=== PATIENT | female | born 1950 ===

== ENCOUNTER 2020-01-17 05:21 | Inpatient (IN) ==
[2020-01-17] MEDS ORDERED: NS 0.9% 1000 ml BAG 1,000 ML IV ONE ×2 (06:07→07:57)
[2020-01-17] MEDS ORDERED: Ondansetron 4 mg VIAL 2 MG/ML 2 ml VIAL IV ONE (07:21)
[2020-01-17 07:45] LABS: Hematocrit 40 % (35-47); Hemoglobin 13.6 g/dL (12.0-16.0); Mean Corpuscular HGB Conc 34 g/dL (31-36); Mean Corpuscular Hemoglobin 31 pg (27-31); Mean Corpuscular Volume 93 fL (80-97); Mean Platelet Volume 8.3 fL (7.4-10.4); Platelet Count 195 10^3/uL (150-450); Red Blood Count 4.33 10^6 /uL (3.70-4.87); Red Cell Distribution Width 19 % (10-15); White Blood Count 0.9 10^3/uL (3.5-10.8)
[2020-01-17 07:54] LABS: Albumin/Globulin Ratio 1.5 (1-3); BUN/Creatinine Ratio 28.6 (8-20); C Reactive Protein 18.82 mg/L (<8.01); Calcium 8.9 mg/dL (8.6-10.3); EGFR African American 112.7 (>60); EGFR Non-African American 93.2 (>60); Globulin 2.7 g/dL (2-4); Potassium 3.7 mmol/L (3.5-5.0); Total Bilirubin 1.1 mg/dL (0.2-1.0); Total Protein 6.7 g/dL (6.4-8.9)
[2020-01-17 08:58] LABS: ABS Lymphocytes 0.3 10^3/ul (1.0-4.8); ABS Neutrophils 0.6 10^3/ul (1.5-7.7); Eosinophil % 0.7 %; Lymphocyte % 32.5 %; Nucleated Red Blood Cells % 0.1
[2020-01-17] MEDS ORDERED: Iohexol 300 (CONTRAST) 10 ML SDV IV ONE (09:28)
[2020-01-17] MEDS ORDERED: Piperacillin/Tazobac ADVAN 3.375 GM in NS 0.9% 100 ml BAG 100 ML IV ONE (10:23)
[2020-01-17] MEDS ORDERED: NS 0.9% 1000 ml BAG 1,000 ML IV SCH (12:00)
[2020-01-17] MEDS ORDERED: Enoxaparin 40 MG/0.4 ML SYR SUBCUT SCH (12:00)
[2020-01-17] MEDS ORDERED: Ondansetron 4 mg VIAL 2 MG/ML 2 ml VIAL IV PRN (12:00)
[2020-01-17] MEDS ORDERED: Prochlorperazine 5 mg/ml 2 ml VIAL (10 mg) IV PRN (13:04)
[2020-01-17] MEDS ORDERED: Morphine 2 MG/ML SYRINGE IV PRN (13:05)
[2020-01-17] MEDS: Carbidopa/Levodop 25/100 MG TAB PO SCH ×2 (14:11→20:48)
[2020-01-17] MEDS ORDERED: Piperacillin/Tazobac ADVAN 4.5 GM in NS 0.9% 100 ml BAG 100 ML IV SCH (14:30)
[2020-01-17] MEDS: Piperacillin/Tazobac ADVAN 4.5 GM in NS 0.9% 100 ml BAG 100 ML IV SCH ×2 (15:47→21:35)
[2020-01-18] MEDS: Piperacillin/Tazobac ADVAN 4.5 GM in NS 0.9% 100 ml BAG 100 ML IV SCH ×4 (03:11→21:20)
[2020-01-18] MEDS: Carbidopa/Levodop 25/100 MG TAB PO SCH ×3 (07:48→19:39)
[2020-01-18 08:08] LABS: Hematocrit 30 % (35-47); Hemoglobin 10.6 g/dL (12.0-16.0); Mean Corpuscular HGB Conc 35 g/dL (31-36); Mean Corpuscular Hemoglobin 33 pg (27-31); Mean Corpuscular Volume 93 fL (80-97); Mean Platelet Volume 8.5 fL (7.4-10.4); Platelet Count 131 10^3/uL (150-450); Red Blood Count 3.26 10^6 /uL (3.70-4.87); Red Cell Distribution Width 19 % (10-15); White Blood Count 3.3 10^3/uL (3.5-10.8)
[2020-01-18 08:20] LABS: Albumin/Globulin Ratio 1.3 (1-3); BUN/Creatinine Ratio 23.7 (8-20); Calcium 7.8 mg/dL (8.6-10.3); EGFR African American 121.6 (>60); EGFR Non-African American 100.5 (>60); Globulin 2.4 g/dL (2-4); Total Bilirubin 1.1 mg/dL (0.2-1.0); Total Protein 5.4 g/dL (6.4-8.9)
[2020-01-18 08:52] LABS: Potassium 3.5 mmol/L (3.5-5.0)
[2020-01-18 09:13] LABS: ABS Lymphocytes 0.2 10^3/ul (1.0-4.8); ABS Monocytes 0.1 10^3/ul (0-0.8); ABS Neutrophils 2.9 10^3/ul (1.5-7.7); Eosinophil % 0.1 %; Lymphocyte % 6.6 %; Nucleated Red Blood Cells % 0.1
[2020-01-18] MEDS: NS 0.9% 1000 ml BAG 1,000 ML IV SCH (21:20)
[2020-01-19] MEDS: Piperacillin/Tazobac ADVAN 4.5 GM in NS 0.9% 100 ml BAG 100 ML IV SCH ×4 (03:32→22:36)
[2020-01-19 06:12] LABS: Hematocrit 30 % (35-47); Hemoglobin 10.1 g/dL (12.0-16.0); Mean Corpuscular HGB Conc 34 g/dL (31-36); Mean Corpuscular Hemoglobin 31 pg (27-31); Mean Corpuscular Volume 92 fL (80-97); Platelet Count 134 10^3/uL (150-450); Red Blood Count 3.24 10^6 /uL (3.70-4.87); Red Cell Distribution Width 19 % (10-15); White Blood Count 2.5 10^3/uL (3.5-10.8)
[2020-01-19 06:28] LABS: Albumin 3.1 g/dL (3.2-5.2); Albumin/Globulin Ratio 1.2 (1-3); BUN/Creatinine Ratio 20.4 (8-20); Calcium 8.6 mg/dL (8.6-10.3); EGFR African American 134.7 (>60); EGFR Non-African American 111.3 (>60); Globulin 2.6 g/dL (2-4); Total Bilirubin 0.7 mg/dL (0.2-1.0); Total Protein 5.7 g/dL (6.4-8.9)
[2020-01-19 07:54] LABS: ABS Lymphocytes 0.2 10^3/ul (1.0-4.8); ABS Monocytes 0.2 10^3/ul (0-0.8); ABS Neutrophils 2.2 10^3/ul (1.5-7.7); Eosinophil % 0.2 %; Lymphocyte % 7.4 %; Nucleated Red Blood Cells % 0.1
[2020-01-19] MEDS: Carbidopa/Levodop 25/100 MG TAB PO SCH ×3 (08:28→20:57)
[2020-01-19 09:50] LABS: Magnesium 1.5 mg/dL (1.9-2.7)
[2020-01-19] MEDS ORDERED: Magnesium Sulf 4 GM/100 ML IV 4,000 MG/100 ML BAG IVPB ONE (10:29)
[2020-01-19] MEDS: KCL 10 MEQ/50 ML IVPREMIX 10 MEQ/50 ML BAG IV SCH ×3 (13:19→16:00)
[2020-01-19 14:16] LABS: Urine Appearance Cloudy; Urine Bilirubin Negative (Negative); Urine Blood 1+ (Negative); Urine Color Yellow; Urine Glucose 1+(50 mg/dL) (Negative); Urine Ketones Trace (Negative); Urine Nitrite Negative (Negative); Urine Protein 1+(30 mg/dL) (Negative); Urine Specific Gravity 1.028 (1.010-1.030); Urine Urobilinogen Negative (Negative)
[2020-01-19 14:21] LABS: Urine Bacteria Absent (Absent); Urine Red Blood Cell 3+(>10/hpf) (Absent); Urine Squamous Epithelial Cell Present (Absent); Urine White Blood Cell 2+(11-20/hpf) (Absent)
[2020-01-19] MEDS: NS 0.9% 1000 ml BAG 1,000 ML IV SCH (18:18)
[2020-01-20] MEDS: Piperacillin/Tazobac ADVAN 4.5 GM in NS 0.9% 100 ml BAG 100 ML IV SCH ×4 (03:38→20:45)
[2020-01-20 06:48] LABS: Albumin 3.1 g/dL (3.2-5.2); Calcium 8.5 mg/dL (8.6-10.3); EGFR African American 147.2 (>60); EGFR Non-African American 121.6 (>60); Magnesium 1.9 mg/dL (1.9-2.7); Potassium 2.9 mmol/L (3.5-5.0); Total Bilirubin 0.8 mg/dL (0.2-1.0); Total Protein 6.1 g/dL (6.4-8.9)
[2020-01-20] MEDS: Carbidopa/Levodop 25/100 MG TAB PO SCH ×3 (09:39→20:46)
[2020-01-20] MEDS: KCL 20 MEQ/100 ML IVPREMIX 20 MEQ/100 ML BAG IV SCH ×2 (09:41→15:13)
[2020-01-20] MEDS: Albuterol HFA INHALER 8 gm MDI INH PRN (13:32)
[2020-01-20 16:22] LABS: Hematocrit 30 % (35-47); Hemoglobin 10.5 g/dL (12.0-16.0); Mean Corpuscular HGB Conc 35 g/dL (31-36); Mean Corpuscular Hemoglobin 32 pg (27-31); Mean Corpuscular Volume 91 fL (80-97); Mean Platelet Volume 7.6 fL (7.4-10.4); Platelet Count 157 10^3/uL (150-450); Red Blood Count 3.28 10^6 /uL (3.70-4.87); Red Cell Distribution Width 19 % (10-15); White Blood Count 1.9 10^3/uL (3.5-10.8)
[2020-01-20 16:51] LABS: ABS Lymphocytes 0.2 10^3/ul (1.0-4.8); ABS Monocytes 0.7 10^3/ul (0-0.8); ABS Neutrophils 0.9 10^3/ul (1.5-7.7); Eosinophil % 0.1 %; Lymphocyte % 12.4 %; Nucleated Red Blood Cells % 0.1
[2020-01-20] MEDS: NS 0.9% 1000 ml BAG 1,000 ML IV SCH (17:25)
[2020-01-21] MEDS: Piperacillin/Tazobac ADVAN 4.5 GM in NS 0.9% 100 ml BAG 100 ML IV SCH ×4 (02:18→21:36)
[2020-01-21] MEDS: Morphine 2 MG/ML SYRINGE IV PRN ×2 (05:27→11:49)
[2020-01-21] MEDS: Carbidopa/Levodop 25/100 MG TAB PO SCH ×3 (08:05→21:36)
[2020-01-21 08:50] LABS: Hematocrit 30 % (35-47); Hemoglobin 10.2 g/dL (12.0-16.0); Mean Corpuscular HGB Conc 34 g/dL (31-36); Mean Corpuscular Hemoglobin 31 pg (27-31); Mean Corpuscular Volume 92 fL (80-97); Mean Platelet Volume 7.5 fL (7.4-10.4); Platelet Count 159 10^3/uL (150-450); Red Cell Distribution Width 19 % (10-15)
[2020-01-21 09:05] LABS: Albumin 3.2 g/dL (3.2-5.2); EGFR African American 170.6 (>60); Globulin 3.1 g/dL (2-4); Potassium 3.2 mmol/L (3.5-5.0); Total Protein 6.3 g/dL (6.4-8.9)
[2020-01-21 09:36] LABS: ABS Lymphocytes 0.3 10^3/ul (1.0-4.8); ABS Monocytes 0.9 10^3/ul (0-0.8); ABS Neutrophils 0.8 10^3/ul (1.5-7.7); Eosinophil % 0.2 %; Lymphocyte % 16.8 %; Nucleated Red Blood Cells % 0.1
[2020-01-21] MEDS: KCL 20 MEQ/100 ML IVPREMIX 20 MEQ/100 ML BAG IV SCH ×2 (10:59→15:37)
[2020-01-21] MEDS: TPN 24 HR with Dextrose 50% Water 500 ML, Amino Acid Infusion 10% 850 ML, Sterile Water... CENTR SCH (17:21)
[2020-01-21] MEDS: Albuterol HFA INHALER 8 gm MDI INH PRN (19:39)
[2020-01-22] MEDS: Piperacillin/Tazobac ADVAN 4.5 GM in NS 0.9% 100 ml BAG 100 ML IV SCH ×4 (02:38→20:51)
[2020-01-22 06:00] LABS: Hematocrit 27 % (35-47); Hemoglobin 9.3 g/dL (12.0-16.0); Mean Corpuscular HGB Conc 35 g/dL (31-36); Mean Corpuscular Hemoglobin 32 pg (27-31); Mean Corpuscular Volume 93 fL (80-97); Mean Platelet Volume 7.4 fL (7.4-10.4); Platelet Count 138 10^3/uL (150-450); Red Blood Count 2.88 10^6 /uL (3.70-4.87); Red Cell Distribution Width 19 % (10-15); White Blood Count 3.7 10^3/uL (3.5-10.8)
[2020-01-22 06:18] LABS: Albumin/Globulin Ratio 1.1 (1-3); BUN/Creatinine Ratio 46.3 (8-20); Calcium 8.9 mg/dL (8.6-10.3); EGFR Non-African American 152.9 (>60); Globulin 2.8 g/dL (2-4); Magnesium 1.5 mg/dL (1.9-2.7); Potassium 3.2 mmol/L (3.5-5.0); Total Bilirubin 0.7 mg/dL (0.2-1.0); Total Protein 5.8 g/dL (6.4-8.9)
[2020-01-22] MEDS ORDERED: Magnesium Sulfate 2 gm BAG 2 GM/50 ML BAG IVPB ONE (07:34)
[2020-01-22] MEDS: Carbidopa/Levodop 25/100 MG TAB PO SCH ×3 (08:25→20:54)
[2020-01-22 08:47] LABS: ABS Lymphocytes 0.5 10^3/ul (1.0-4.8); ABS Neutrophils 2.1 10^3/ul (1.5-7.7); Eosinophil % 0.1 %; Lymphocyte % 13.9 %; Nucleated Red Blood Cells % 0.3
[2020-01-22 08:50] LABS: Polychromasia 1+
[2020-01-22] MEDS: KCL 20 MEQ/100 ML IVPREMIX 20 MEQ/100 ML BAG IV SCH ×2 (09:37→12:00)
[2020-01-22] MEDS: Morphine 2 MG/ML SYRINGE IV PRN ×2 (11:09→20:50)
[2020-01-22] MEDS: Albuterol HFA INHALER 8 gm MDI INH PRN (11:13)
[2020-01-22] MEDS ORDERED: Iohexol 300 (CONTRAST) 10 ML SDV IV ONE (12:36)
[2020-01-22 16:31] LABS: Urine Appearance Cloudy; Urine Bilirubin Negative (Negative); Urine Blood 1+ (Negative); Urine Color Yellow; Urine Glucose 2+(150 mg/dL) (Negative); Urine Ketones Negative (Negative); Urine Nitrite Negative (Negative); Urine Protein 1+(30 mg/dL) (Negative); Urine Specific Gravity 1.024 (1.010-1.030); Urine Urobilinogen Negative (Negative)
[2020-01-22 16:41] LABS: Urine Bacteria Absent (Absent); Urine Red Blood Cell Trace(0-2/hpf) (Absent); Urine White Blood Cell Absent (Absent)
[2020-01-22] MEDS: TPN 24 HR with Dextrose 50% Water 500 ML, Amino Acid Infusion 10% 850 ML, Sterile Water... CENTR SCH (17:15)
[2020-01-23] MEDS: Piperacillin/Tazobac ADVAN 4.5 GM in NS 0.9% 100 ml BAG 100 ML IV SCH ×4 (02:57→21:33)
[2020-01-23 05:23] LABS: Hematocrit 26 % (35-47); Hemoglobin 8.8 g/dL (12.0-16.0); Mean Corpuscular HGB Conc 34 g/dL (31-36); Mean Corpuscular Hemoglobin 32 pg (27-31); Mean Corpuscular Volume 93 fL (80-97); Mean Platelet Volume 7.3 fL (7.4-10.4); Platelet Count 114 10^3/uL (150-450); Red Blood Count 2.78 10^6 /uL (3.70-4.87); Red Cell Distribution Width 19 % (10-15); White Blood Count 5.3 10^3/uL (3.5-10.8)
[2020-01-23 05:38] LABS: Albumin 2.7 g/dL (3.2-5.2); Calcium 8.1 mg/dL (8.6-10.3); EGFR African American 229.7 (>60); EGFR Non-African American 189.8 (>60); Globulin 2.7 g/dL (2-4); Magnesium 1.5 mg/dL (1.9-2.7); Potassium 3.1 mmol/L (3.5-5.0); Total Bilirubin 0.7 mg/dL (0.2-1.0); Total Protein 5.4 g/dL (6.4-8.9)
[2020-01-23 07:27] LABS: ABS Lymphocytes 0.7 10^3/ul (1.0-4.8); ABS Neutrophils 3.6 10^3/ul (1.5-7.7); Eosinophil % 0.1 %; Lymphocyte % 13.1 %; Nucleated Red Blood Cells % 0.2
[2020-01-23] MEDS ORDERED: Enoxaparin 40 MG/0.4 ML SYR SUBCUT ONE (08:00)
[2020-01-23] MEDS ORDERED: TPN 24 HR with Dextrose 50% Water 500 ML, Amino Acid Infusion 10% 850 ML, Sterile Water... CENTR SCH (08:19)
[2020-01-23] MEDS ORDERED: Magnesium Sulfate 2 gm BAG 2 GM/50 ML BAG IVPB ONE ×2 (09:13→22:45)
[2020-01-23] MEDS: Carbidopa/Levodop 25/100 MG TAB PO SCH ×3 (09:34→21:09)
[2020-01-23] MEDS ORDERED: Furosemide 20 mg/2 ml IV VIAL IV SLOW PU ONE (10:53)
[2020-01-23] MEDS ORDERED: Iodixanol (CONTRAST) 320 MG/ML 100 ML SDV IV ONE (11:09)
[2020-01-23] MEDS ORDERED: Lactated Ringers 1000 ml BAG 1,000 ML IV ONE (13:20)
[2020-01-23] MEDS: Morphine 2 MG/ML SYRINGE IV PRN (13:21)
[2020-01-23] MEDS ORDERED: fentaNYL 100 mcg/2 ml 50 MCG/ML VIAL IV SLOW PU PRN ×2 (13:23→18:33)
[2020-01-23] MEDS ORDERED: Alteplase (CATHFLO) 2 MG VIAL IV ONE (13:29)
[2020-01-23 13:41] LABS: Hematocrit 36 % (35-47); Hemoglobin 12.2 g/dL (12.0-16.0); Mean Corpuscular HGB Conc 34 g/dL (31-36); Mean Corpuscular Hemoglobin 32 pg (27-31); Mean Corpuscular Volume 94 fL (80-97); Mean Platelet Volume 8.2 fL (7.4-10.4); Platelet Count 141 10^3/uL (150-450); Red Blood Count 3.87 10^6 /uL (3.70-4.87); Red Cell Distribution Width 19 % (10-15); White Blood Count 1.6 10^3/uL (3.5-10.8)
[2020-01-23 13:51] LABS: ABS Lymphocytes 0.5 10^3/ul (1.0-4.8); ABS Monocytes 0.2 10^3/ul (0-0.8); ABS Neutrophils 0.8 10^3/ul (1.5-7.7); ABS Nucleated RBC 0.1 10^3/ul; Eosinophil % 0.1 %; Lymphocyte % 34.5 %; Nucleated Red Blood Cells % 6.6
[2020-01-23 13:56] LABS: INR 1.17 (0.82-1.09)
[2020-01-23 13:58] LABS: Albumin 2.8 g/dL (3.2-5.2); BUN/Creatinine Ratio 44.2 (8-20); EGFR African American 175.1 (>60); EGFR Non-African American 144.7 (>60); Globulin 2.7 g/dL (2-4); Magnesium 1.6 mg/dL (1.9-2.7); Potassium 2.8 mmol/L (3.5-5.0); Total Protein 5.5 g/dL (6.4-8.9)
[2020-01-23] MEDS ORDERED: metroNIDAZOLE IV 500 MG/100ML 500 MG/100 ML BAG IVPB SCH (14:00)
[2020-01-23] MEDS ORDERED: Propofol 10 MG/ML 20 ML BTL ONE (14:06)
[2020-01-23] MEDS ORDERED: Lidocaine 2% PF 5 ML VIAL ONE (14:06)
[2020-01-23] MEDS ORDERED: Phenylephrine IV 10 MG/ML 1 ml VIAL ONE (14:06)
[2020-01-23] MEDS ORDERED: Rocuronium 50 mg VIAL 10 mg/ml 5 ml VIAL (50 mg) ONE (14:07)
[2020-01-23] MEDS: KCL 20 MEQ/100 ML IVPREMIX 20 MEQ/100 ML BAG IV SCH ×3 (14:17→21:48)
[2020-01-23] MEDS ORDERED: Midazolam 5 mg/5 ml VIAL 1 mg/ml 5 ml VIAL (5 mg) ONE (16:23)
[2020-01-23] MEDS ORDERED: Phenylephrine IV 50 MG in NS 0.9% 250 ml 245 ML IV SCH (17:00)
[2020-01-23] MEDS: Propofol 10 mg/ml 100 ML BTL 100 ML IV SCH ×2 (17:08→17:10)
[2020-01-23] MEDS: Norepinephrine 16MCG/ML IVPRE 4,000 MCG/250 ML BAG IV SCH ×3 (17:10→22:56)
[2020-01-23] MEDS: TPN 24 HR with Dextrose 50% Water 500 ML, Amino Acid Infusion 10% 850 ML, Sterile Water... CENTR SCH (18:08)
[2020-01-23] MEDS ORDERED: Lorazepam PYXIS KEY PRN (18:34)
[2020-01-23] MEDS ORDERED: LORazepam 2 mg VIAL 1 ml IV PUSH PRN (18:34)
[2020-01-23] MEDS ORDERED: fentaNYL 100 mcg/2 ml 50 MCG/ML VIAL ONE (18:35)
[2020-01-23 18:46] LABS: Potassium 3.6 mmol/L (3.5-5.0)
[2020-01-23 19:44] LABS: Magnesium 1.7 mg/dL (1.9-2.7)
[2020-01-23] MEDS: fentaNYL INFUSION 50 MCG/ML 2,500 MCG/50 ML BAG IV SCH (21:00)
[2020-01-23] MEDS: Chlorhexidine MOUTHWASH 0.12% 15 ML UDC SWISH SPIT SCH ×2 (21:01→22:50)
[2020-01-23] MEDS: Albumin Human 25% 25 GM/100 ML BTL IV SCH ×2 (21:15→22:41)
[2020-01-23] MEDS ORDERED: KCL 20 MEQ/100 ML IVPREMIX 20 MEQ/100 ML BAG IV ONE (22:00)
[2020-01-23 22:35] LABS: Albumin 2.3 g/dL (3.2-5.2); Albumin/Globulin Ratio 1.2 (1-3); BUN/Creatinine Ratio 25.6 (8-20); Calcium 6.9 mg/dL (8.6-10.3); EGFR African American 78.7 (>60); Globulin 1.9 g/dL (2-4); Potassium 4.5 mmol/L (3.5-5.0); Total Bilirubin 0.8 mg/dL (0.2-1.0); Total Protein 4.2 g/dL (6.4-8.9)
[2020-01-23] MEDS ORDERED: CALCIUM GLUCONATE 1GM/50ML NS 1 GM/50 ML BAG IV ONE (22:45)
[2020-01-23] MEDS: Pantoprazole VIAL 40 MG VIAL IV SCH (23:28)
[2020-01-23] MEDS ORDERED: Norepinephrine IV 16 MG in NS 0.9% 250 ml 234 ML IV SCH (23:30)
[2020-01-24] MEDS ORDERED: NS 0.9% 500 ml BAG 500 ML IV ONE (02:18)
[2020-01-24] MEDS: Chlorhexidine MOUTHWASH 0.12% 15 ML UDC SWISH SPIT SCH ×6 (02:43→23:13)
[2020-01-24] MEDS: Piperacillin/Tazobac ADVAN 4.5 GM in NS 0.9% 100 ml BAG 100 ML IV SCH ×3 (02:43→17:26)
[2020-01-24] MEDS ORDERED: metroNIDAZOLE IV 500 MG/100ML 500 MG/100 ML BAG IVPB SCH (04:00)
[2020-01-24] MEDS: Propofol 10 mg/ml 100 ML BTL 100 ML IV SCH ×3 (04:04→18:16)
[2020-01-24 06:51] LABS: Potassium 4.2 mmol/L (3.5-5.0)
[2020-01-24 06:52] LABS: Albumin 2.9 g/dL (3.2-5.2); Albumin/Globulin Ratio 1.8 (1-3); Calcium 7.4 mg/dL (8.6-10.3); EGFR African American 66.1 (>60); EGFR Non-African American 54.7 (>60); Globulin 1.6 g/dL (2-4); Magnesium 2.2 mg/dL (1.9-2.7); Phosphorus 4.2 mg/dL (2.5-5.0); Total Protein 4.5 g/dL (6.4-8.9)
[2020-01-24 07:01] LABS: Hematocrit 29 % (35-47); Hemoglobin 9.8 g/dL (12.0-16.0); Mean Corpuscular HGB Conc 34 g/dL (31-36); Mean Corpuscular Hemoglobin 32 pg (27-31); Mean Corpuscular Volume 93 fL (80-97); Mean Platelet Volume 8.9 fL (7.4-10.4); Platelet Count 70 10^3/uL (150-450); Red Blood Count 3.08 10^6 /uL (3.70-4.87); Red Cell Distribution Width 20 % (10-15)
[2020-01-24 08:24] LABS: ABS Lymphocytes 0.7 10^3/ul (1.0-4.8); ABS Monocytes 0.3 10^3/ul (0-0.8); Lymphocyte % 7.3 %; Nucleated Red Blood Cells % 0.3
[2020-01-24] MEDS ORDERED: Lactated Ringers 500 ml BAG 500 ML IV ONE (10:22)
[2020-01-24] MEDS ORDERED: Lactated Ringers 1000 ml BAG 500 ML IV ONE (10:38)
[2020-01-24] MEDS: TPN 24 HR with Dextrose 50% Water 500 ML, Amino Acid Infusion 10% 850 ML, Sterile Water... CENTR SCH (10:47)
[2020-01-24] MEDS: Lactated Ringers 1000 ml BAG 1,000 ML IV SCH ×3 (11:26→22:19)
[2020-01-24] MEDS ORDERED: TPN CENTRAL STANDARD BASE A CENTR SCH (17:00)
[2020-01-24] MEDS: Heparin 5000 UNITS/ML 1 mL VIAL SUBCUT SCH (17:26)
[2020-01-24] MEDS: fentaNYL INFUSION 50 MCG/ML 2,500 MCG/50 ML BAG IV SCH (17:51)
[2020-01-24] MEDS: Pantoprazole VIAL 40 MG VIAL IV SCH (23:13)
[2020-01-25] MEDS: Chlorhexidine MOUTHWASH 0.12% 15 ML UDC SWISH SPIT SCH ×4 (01:38→13:35)
[2020-01-25] MEDS: Piperacillin/Tazobac ADVAN 4.5 GM in NS 0.9% 100 ml BAG 100 ML IV SCH ×2 (01:38→09:49)
[2020-01-25 04:45] LABS: Albumin 2.3 g/dL (3.2-5.2); Albumin/Globulin Ratio 1.2 (1-3); BUN/Creatinine Ratio 43.3 (8-20); Calcium 7.7 mg/dL (8.6-10.3); EGFR African American 74.7 (>60); EGFR Non-African American 61.7 (>60); Magnesium 2.1 mg/dL (1.9-2.7); Phosphorus 2.3 mg/dL (2.5-5.0); Potassium 3.8 mmol/L (3.5-5.0); Total Bilirubin 0.3 mg/dL (0.2-1.0); Total Protein 4.3 g/dL (6.4-8.9)
[2020-01-25 05:27] LABS: Hematocrit 24 % (35-47); Hemoglobin 7.8 g/dL (12.0-16.0); Mean Corpuscular HGB Conc 33 g/dL (31-36); Mean Corpuscular Hemoglobin 32 pg (27-31); Mean Corpuscular Volume 95 fL (80-97); Mean Platelet Volume 9.5 fL (7.4-10.4); Platelet Count 40 10^3/uL (150-450); Red Blood Count 2.46 10^6 /uL (3.70-4.87); Red Cell Distribution Width 20 % (10-15); White Blood Count 5.7 10^3/uL (3.5-10.8)
[2020-01-25] MEDS: Lactated Ringers 1000 ml BAG 1,000 ML IV SCH (06:49)
[2020-01-25 08:35] LABS: ABS Lymphocytes 0.4 10^3/ul (1.0-4.8); ABS Monocytes 0.2 10^3/ul (0-0.8); ABS Neutrophils 5.1 10^3/ul (1.5-7.7); Eosinophil % 0.1 %; Lymphocyte % 6.5 %; Nucleated Red Blood Cells % 0.2
[2020-01-25] MEDS: Heparin 5000 UNITS/ML 1 mL VIAL SUBCUT SCH (09:49)
[2020-01-25 11:13] LABS: Activated Partial Thrombo Time 32.7 seconds (26.0-38.0); Fibrinogen 633.4 mg/dL (110.8-404.3)
[2020-01-25] MEDS: Propofol 10 mg/ml 100 ML BTL 100 ML IV SCH (13:35)
[2020-01-25] MEDS ORDERED: Norepinephrine IV 16 MG in NS 0.9% 250 ml 234 ML IV SCH (13:36)
[2020-01-25] MEDS ORDERED: Lorazepam PYXIS KEY PRN (15:25)
[2020-01-25] MEDS ORDERED: LORazepam 2 mg VIAL 1 ml IV PUSH ONE (15:30)
[2020-01-25] MEDS ORDERED: Morphine PCA 5 MG/ML Titrate per Protocol PCA SCH (16:00)
[2020-01-25] MEDS ORDERED: LORazepam VIAL (for drip) 100 MG in D5W IV SCH (16:00)
[2020-01-25] MEDS ORDERED: TPN CENTRAL STANDARD BASE A CENTR SCH (17:00)
[2020-01-25 17:23] VITALS: BP 92/64
== END 2020-01-25 17:55 | disposition expired | DRG 329 ==
LOC: ED 05:21 → MEDTELE 13:51 → ICU 01-23 13:09
PROVIDERS: ADMIT Pediatrics; ATTEND Internal Medicine Critical Care Medicine